=== PATIENT | female | born 1960 | race Native Hawaiian/Other Pacific Islander ===

== ENCOUNTER 2017-12-13 08:26 | Outpatient (CLI) | payer OTHER | END 2017-12-13 19:17 | disposition home or self-care (01) | LOC: US 08:26 → MAMMO 09:30 → US 19:17 | DX: Z12.31 Encounter for screening mammogram for malignant neoplasm of breast (principal); R13.12 Dysphagia, oropharyngeal phase ==

== ENCOUNTER 2018-03-23 12:47 | Outpatient (CLI) | payer OTHER | END 2018-03-23 20:34 | disposition home or self-care (01) | LOC: MAMMO 12:47 | DX: N64.89 Other specified disorders of breast (principal) ==

== ENCOUNTER 2018-05-29 16:42 | Emergency (ER) | payer OTHER ==
[~2018-05-29] VITALS: Ht 170.2 cm; Wt 72.6 kg
[2018-05-29 16:50] VITALS: BP 136/84; TEMP 98
== END 2018-05-29 19:36 | disposition home or self-care (01) ==
LOC: ED 16:42
DX: M62.838 Other muscle spasm (principal); W18.39XA Other fall on same level, initial encounter; Y92.89 Other specified places as the place of occurrence of the external cause
CPT/HCPCS: 96372; 99283; J1885

== ENCOUNTER 2018-08-01 13:45 | Emergency (ER) | payer OTHER ==
[~2018-08-01] VITALS: Ht 170.2 cm; Wt 68.0 kg
[2018-08-01 13:49] VITALS: TEMP 97.7
[2018-08-01 15:13] VITALS: BP 122/74
== END 2018-08-01 15:14 | disposition home or self-care (01) ==
LOC: ED 13:45
DX: S92.515A Nondisplaced fracture of proximal phalanx of left lesser toe(s), initial encounter for closed fracture (principal); W18.39XA Other fall on same level, initial encounter; Y92.512 Supermarket, store or market as the place of occurrence of the external cause
CPT/HCPCS: 99282

== ENCOUNTER 2018-09-05 08:49 | Emergency (ER) | payer OTHER ==
[~2018-09-05] VITALS: Ht 170.2 cm; Wt 68.0 kg
[2018-09-05 09:17] VITALS: TEMP 97.7
[2018-09-05 10:49] LABS: PLATELET COUNT 234 K/uL (152-353)
[2018-09-05 10:54] LABS: POTASSIUM 4.1 mmol/L (3.6-5.2)
[2018-09-05 11:35] VITALS: BP 127/82
== END 2018-09-05 11:40 | disposition home or self-care (01) ==
LOC: ED 08:49
DX: N39.0 Urinary tract infection, site not specified (principal); K59.09 Other constipation
CPT/HCPCS: 36415; 74022; 80053; 81000; 85027; 87086; 87088; 99283

== ENCOUNTER 2020-05-14 02:56 | Emergency (ER) | payer OTHER ==
[~2020-05-14] VITALS: Ht 170.2 cm; Wt 70.3 kg
[2020-05-14 04:14] LABS: PLATELET COUNT 231 K/uL (152-353)
[2020-05-14 05:11] VITALS: BP 115/63; TEMP 98.9
== END 2020-05-14 05:19 | disposition home or self-care (01) ==
LOC: ED 02:56
PROVIDERS: Family Medicine
DX: L03.115 Cellulitis of right lower limb (principal)
CPT/HCPCS: 83605; 85027; 87040; 96372; 99283; J1885

== ENCOUNTER 2021-01-29 09:01 | Outpatient (CLI) | payer OTHER | END 2021-01-29 22:39 | disposition home or self-care (01) | LOC: RAD 09:01 | PROVIDERS: ATTEND Nurse Practitioner Family | DX: M79.671 Pain in right foot (principal) ==

== ENCOUNTER 2021-04-10 11:59 | Observation (INO) | payer OTHER ==
[~2021-04-10] VITALS: Ht 170.2 cm; Wt 61.9 kg
[2021-04-10 11:59] VITALS: BP 121/77; TEMP 98.2
[2021-04-10 12:43] LABS: POTASSIUM 3.7 mmol/L (3.6-5.2); SODIUM 141 mmol/L (136-145)
[2021-04-10 12:48] LABS: PLATELET COUNT 209 K/uL (152-353)
[2021-04-10 12:51] VITALS: BP 114/67
[2021-04-10 13:06] LABS: PARTIAL THROMBOPLASTIN TIME 30.5 SECONDS (24.5-33.6)
--- NOTE | 2021-04-10 13:50 | NUR ---
PATIENT ARRIVED TO THE FLOOR. PATIENT RESTING IN BED. NAD NOTED. PT HAS 20 G PERIPHERAL IV TO LEFT AC.
[2021-04-10 14:11] VITALS: BP 128/68; TEMP 96.6; Ht 170.2 cm; Wt 61.9 kg
[2021-04-10 16:00] VITALS: BP 111/68; TEMP 98.2
[2021-04-10] MEDS ORDERED: CLON0.5T36 PO (16:28)
[2021-04-10] MEDS ORDERED: PROAIR HFA108 MCG/AC INH (16:31)
[2021-04-10] MEDS ORDERED: CLARITIN10 M1 PO (16:32)
[2021-04-10 20:00] VITALS: BP 93/50; TEMP 98.2
[2021-04-10 23:58] VITALS: BP 91/51; TEMP 97.9
--- NOTE | 2021-04-11 02:35 | NUR ---
04/10/21 2015: PT AWAKE ALERT DENIES CHEST PAIN AT THIS TIME. PT C/O HER EYES ITCHING AND BURNING AND REQUESTED SOMETHING FOR ALLERGIES. ER DOCTOR NOTIFIED AND ORDER WAS RECEIVED FOR BENADRYL 50 MG PO. NO DISTRESS NOTED AT THIS TIME.
[2021-04-11 03:58] VITALS: BP 95/54; TEMP 97.7
[2021-04-11 08:00] VITALS: BP 97/56; TEMP 98.2
--- NOTE | 2021-04-11 11:13 | NUR ---
04/11/21 1100 PT OUT OF ROOM IN [facility] STATES SHE IS GOING TO WALK OUTSIDE AND SMOKE SHE SAIS SHE NEEDS TO LEAVE BY 12NOON BECAISE OF APPT WITH TECHNOLOGY SPECIALIST.TOLD PT THAT DR. BLAKELY WILL HAVE TO GET HER DISCHARGE INFORMATION DONE FOR HER.PT STATES SHE WILL BE BACK IN A FEW MINUTES.PT ENCOURAGED TO USE A MASK.CC
--- NOTE | 2021-04-11 11:30 | NUR ---
04/11/21 1125 WENT TO CHECK ON PT HASNOT RETURNED TO ROOM STUDENT TALKED WITH WELDING MACHINE OPERATOR HELPER [facility]AS OF HOSP SHE STATED PT GOT IN CAR WITH SOMEONE AND DROVE OFF.IN PT ROOM SL HAS BEEN REMOVED AND PUT IN TRASH.ALSO TELE BOX HAS BEEN REMOVED.CC 04/11/21 1128 PING CHARGE NURSE NOTIFIED PHYSICAN OF PT LEAVING FACILTY.CC
== END 2021-04-11 11:30 | disposition left against medical advice (07) ==
LOC: ED 11:59 → MED/SURG 13:00
PROVIDERS: Hospitalist; ADMIT Internal Medicine; ATTEND Internal Medicine
DX: R07.89 Other chest pain (principal); K21.9 Gastro-esophageal reflux disease without esophagitis; F41.8 Other specified anxiety disorders; Z72.0 Tobacco use; F15.180 Other stimulant abuse with stimulant-induced anxiety disorder; G40.802 Other epilepsy, not intractable, without status epilepticus
CPT/HCPCS: 36415; 80053; 80307; 81000; 82550; 83880; 84484; 85027; 85379; 85610; 85730; 87635; 93005; 99220; 99283; G0378; J1650; U0003

== ENCOUNTER 2021-05-27 15:11 | Emergency (ER) | payer OTHER ==
[~2021-05-27] VITALS: Ht 170.2 cm; Wt 61.2 kg
[~2021-05-27 15:11] MED LIST: CLARITIN10 M1 PO; CLON0.5T36 PO; PROAIR HFA108 MCG/AC INH
[2021-05-27 17:25] VITALS: BP 144/81; TEMP 98.1
== END 2021-05-27 17:25 | disposition home or self-care (01) ==
LOC: ED 15:11
DX: S05.02XA Injury of conjunctiva and corneal abrasion without foreign body, left eye, initial encounter (principal); W50.0XXA Accidental hit or strike by another person, initial encounter; Y92.89 Other specified places as the place of occurrence of the external cause
CPT/HCPCS: 99283

== ENCOUNTER 2023-04-29 08:09 | Emergency (ER) | payer OTHER ==
[~2023-04-29] VITALS: Ht 170.2 cm; Wt 90.7 kg
[2023-04-29 08:14] VITALS: BP 139/76; TEMP 98.2
== END 2023-04-29 10:58 | disposition home or self-care (01) ==
LOC: ED 08:09
DX: S96.912A Strain of unspecified muscle and tendon at ankle and foot level, left foot, initial encounter (principal); W01.0XXA Fall on same level from slipping, tripping and stumbling without subsequent striking against object, initial encounter
CPT/HCPCS: 96372; 99283; J1100; J1885

== ENCOUNTER 2023-05-18 12:13 | Emergency (ER) | payer OTHER ==
[~2023-05-18] VITALS: Ht 170.2 cm; Wt 99.8 kg
[2023-05-18 12:13] VITALS: BP 121/73; TEMP 98.3
== END 2023-05-18 14:57 | disposition home or self-care (01) ==
LOC: ED 12:13
DX: S93.402A Sprain of unspecified ligament of left ankle, initial encounter (principal); M79.605 Pain in left leg; F17.210 Nicotine dependence, cigarettes, uncomplicated; X58.XXXA Exposure to other specified factors, initial encounter
CPT/HCPCS: 99283

== ENCOUNTER 2023-06-22 16:33 | Emergency (ER) | payer OTHER ==
[~2023-06-22] VITALS: Ht 170.2 cm; Wt 59.0 kg
[2023-06-22 17:22] VITALS: BP 133/76; TEMP 98
== END 2023-06-22 18:45 | disposition home or self-care (01) ==
LOC: ED 16:33
DX: L97.529 Non-pressure chronic ulcer of other part of left foot with unspecified severity (principal); L97.519 Non-pressure chronic ulcer of other part of right foot with unspecified severity; L84 Corns and callosities; M79.89 Other specified soft tissue disorders; F15.10 Other stimulant abuse, uncomplicated; F17.210 Nicotine dependence, cigarettes, uncomplicated
CPT/HCPCS: 99283

== ENCOUNTER 2023-07-17 04:20 | Emergency (ER) | payer OTHER ==
[~2023-07-17] VITALS: Ht 170.2 cm; Wt 77.1 kg
[2023-07-17 05:58] VITALS: BP 122/74; TEMP 98
== END 2023-07-17 05:58 | disposition home or self-care (01) ==
LOC: ED 04:20
DX: R51.9 Headache, unspecified (principal); R50.9 Fever, unspecified; J01.80 Other acute sinusitis; J00 Acute nasopharyngitis [common cold]
CPT/HCPCS: 87502; 87635; 87651; 99283; U0003

== ENCOUNTER 2023-12-14 16:44 | Emergency (ER) | payer OTHER ==
[~2023-12-14] VITALS: Ht 170.2 cm; Wt 70.3 kg
[2023-12-14 16:47] VITALS: BP 149/74; TEMP 98.8
[2023-12-14] MEDS ORDERED: TORADOL 60MG/2ML INJ IM ONE ×2 (17:15→17:17)
[2023-12-14] MEDS ORDERED: METHYLPREDNISOLONE SOD SUCC 125 MG ML IM ONE (17:15)
[2023-12-14] MEDS ORDERED: METHYLPREDNISOLONE SOD SUCC 125 MG IV ONE (17:16)
== END 2023-12-14 17:42 | disposition home or self-care (01) ==
LOC: ED 16:44
DX: M79.606 Pain in leg, unspecified (principal); M79.672 Pain in left foot; M79.671 Pain in right foot; S39.012A Strain of muscle, fascia and tendon of lower back, initial encounter; M94.0 Chondrocostal junction syndrome [Tietze]; M54.10 Radiculopathy, site unspecified; I10 Essential (primary) hypertension; F19.11 Other psychoactive substance abuse, in remission; Y92.89 Other specified places as the place of occurrence of the external cause
CPT/HCPCS: 96372; 99283; J1885; J2930